=== PATIENT | male | born 1970 | race Caucasian/White ===

== ENCOUNTER 2023-03-22 09:31 | Outpatient (CLI) | payer OTHER | END 2023-03-22 10:23 | disposition home or self-care (01) | LOC: MRI 09:31 | DX: M25.572 Pain in left ankle and joints of left foot (principal) | CPT/HCPCS: 73718 ==

== ENCOUNTER 2023-03-22 12:03 | Emergency (ER) | payer OTHER ==
[~2023-03-22] VITALS: Ht 182.9 cm; Wt 115.7 kg
== END 2023-03-22 15:42 | disposition home or self-care (01) ==
LOC: ER 12:03
DX: M76.892 Other specified enthesopathies of left lower limb, excluding foot (principal); Z88.6 Allergy status to analgesic agent